=== PATIENT | female | born 1985 | race Caucasian/White ===

== ENCOUNTER 2017-09-26 02:05 | Outpatient (CLI) | payer MEDICAID | END 2017-09-26 02:06 | disposition critical access hospital (66) | LOC: EMS 02:05 | PROVIDERS: ATTEND Surgery | DX: R07.9 Chest pain, unspecified (principal) | CPT/HCPCS: A0425; A0429; A0999 ==

== ENCOUNTER 2017-09-26 02:24 | Emergency (ER) | payer MEDICAID ==
--- NOTE | 2017-09-26 03:54 | ED Physician Documentation ---
History of Present Illness - Stated complaint Stated Complaint: LEFT ARM TINGLING, ANXIETY - Chief complaint Chief Complaint: MHE - History obtained from History obtained from: Patient - History of Present Illness Timing: Enter time (01:00), Today Pain level max: 8 Pain level now: 0 Improved by: no ameliorating factors - Additonal information Additional information: much of history is from person accompanying patient (at bedside) who identifies herself as patients friend and neighbor; patient contributes minimally due to being sleepy and does not want to wake up for H+P (she verbalizes that she is tired and wants to sleep. Friend says this is not unusual for patient.) patient and friend were at a gathering [employer], had some alcoholic beverages and then went to patients apartment. at approximately 1 AM, patient told friend she was having chest pain, left arm numbness, and blurry vision left eye. on my HPI, patient denies having these symptoms at this time Review of Systems Unable to obtain: Uncooperative (limited (patient answers some questions with one or two word answers or shaking head, but mostly asks to be left alone so she can sleep)) Eyes: reports: Decreased vision Cardiac: reports: Chest pain / pressure Respiratory: denies: Dyspnea GI: denies: Abdominal Pain Neurologic: reports: Numbness (LUE). denies: Headache PD PAST MEDICAL HISTORY - Past Medical History Past Medical History: Yes Psych: Depression, Anxiety - Past Surgical History Past Surgical History: No - Present Medications Home Medications: Ambulatory Orders Medication Instructions Recorded Confirmed Vit W-Ca,Fe,FA(<1 mg) 09/16/14 09/16/14 [ Vitamins] Acetaminophen/Cod 300/30 [Tylenol 1 - 2 each PO Q6HR PRN #12 tablet 09/17/14 #3] - Allergies Allergies/Adverse Reactions: Allergies Allergy/AdvReac Type Severity Reaction Status Date / Time No Known Drug Allergies Allergy Verified 09/26/17 02:26 - Social History Does the pt smoke?: Yes Smoking Status: Current every day smoker Does the pt drink ETOH?: Yes Does the pt have substance abuse?: No - Immunizations Immunizations are current?: Yes - POLST Patient has POLST: No PD ED PE NORMAL - Vitals Vital signs reviewed: Yes - General General: No acute distress, Well developed/nourished, Other (asleep, awakens to tactile, sometimes needing repeated tactile (shaking of shoulder) to keep her awake. follows some commands) - HEENT HEENT: Atraumatic, PERRL, EOMI, Moist mucous membranes - Neck Neck: No bony TTP - Cardiac Cardiac: RRR, No murmur - Respiratory Respiratory: No respiratory distress, Clear bilaterally - Abdomen Abdomen: Normal bowel sounds, Soft, Non tender, Non distended - Neuro Eye Opening: To Voice Motor: Obeys Commands Verbal: Oriented GCS Score: 14 Results - Vitals Vitals: Vital Signs - 24 hr 09/26/17 09/26/17 04:21 06:15 Temperature 36.5 C Heart Rate 78 80 Respiratory 24 16 Rate Blood Pressure 93/55 L 110/78 O2 Saturation 96 98 Oxygen O2 Source Room air - Labs Labs: Laboratory Tests 09/26/17 09/26/17 09/26/17 04:30 04:30 04:30 WBC 8.5 RBC 4.35 Hgb 14.4 Hct 41.9 MCV 96.3 MCH 33.1 H MCHC 34.4 RDW 13.5 Plt Count 377 MPV 7.7 L Neut # (Auto) 4.3 Lymph # (Auto) 3.5 Kimble # (Auto) 0.3 Eos # (Auto) 0.4 Baso # (Auto) 0.1 Absolute Nucleated RBC 0.01 Nucleated RBC % 0.1 Sodium 144 Potassium 4.1 Chloride 109 Carbon Dioxide 24 Anion Gap 11.0 BUN 11 Creatinine 0.9 Estimated GFR (MDRD) 74 L Glucose 104 H Calcium 8.6 Troponin I < 0.04 Ethyl Alcohol 214.0 - Rads (name of study) CT head Radiology: Prelim report reviewed, See rad report chest xray Radiology: Prelim report reviewed, See rad report PD MEDICAL DECISION MAKING - ED course Complexity details: reviewed results, re-evaluated patient, considered differential, d/w patient - Sepsis Event Vital Signs: Vital Signs - 24 hr 09/26/17 09/26/17 04:21 06:15 Temperature 36.5 C Heart Rate 78 80 Respiratory 24 16 Rate Blood Pressure 93/55 L 110/78 O2 Saturation 96 98 Oxygen O2 Source Room air Departure - Departure Disposition: 01 Home, Self Care Clinical Impression: Chest pain Condition: Good Instructions: ED Chest Pain Atypical Unkn Cause Follow-Up: [facility] [Provider Group] [facility] [Provider Group] Comments: Contact your primary care provider's office this morning to arrange for next available appointment. Do not drive today, as your alcohol level is very high. Discharge Date/Time: 09/26/17 06:31
[2017-09-26 04:39] LABS: BASOPHILS # (AUTO) 0.1 10^3/uL (0.0-0.1); BASOPHILS % (AUTO) 0.7 %; EOSINOPHILS # (AUTO) 0.4 10^3/uL (0.0-0.7); EOSINOPHILS % (AUTO) 4.6 %; HGB - HEMOGLOBIN 14.4 g/dL (12.0-16.0); LYMPHOCYTES # (AUTO) 3.5 10^3/uL (1.5-3.5); LYMPHOCYTES % (AUTO) 40.9 %; MEAN CORPUSCULAR HEMOGLOBIN 33.1 pg (27.0-31.0); MEAN CORPUSCULAR HGB CONC 34.4 g/dL (32.0-36.0); MEAN CORPUSCULAR VOLUME 96.3 fL (81.0-99.0); MEAN PLATELET VOLUME 7.7 fL (7.9-10.8); MONOCYTES # (AUTO) 0.3 10^3/uL (0.0-1.0); MONOCYTES % (AUTO) 3.7 %; NEUTROPHILS # (AUTO) 4.3 10^3/uL (1.5-6.6); NEUTROPHILS % (AUTO) 50.1 %; PLT - PLATELET COUNT 377 10^3/uL (130-450); RED BLOOD COUNT 4.35 10^6/uL (4.20-5.40); RED CELL DISTRIBUTION WIDTH 13.5 % (12.0-15.0); WHITE BLOOD COUNT 8.5 x10^3/uL (4.8-10.8)
[2017-09-26 04:48] LABS: CALCIUM 8.6 mg/dL (8.5-10.3); CREATININE 0.9 mg/dL (0.4-1.0)
--- NOTE | 2017-09-26 04:54 | XRAY Report ---
Procedure Date: 09/26/2017 Accession Number: [id number] / [id number] Procedure: XR - Chest 2 View X-Ray CPT Code: 34064 FULL RESULT: EXAM: CHEST RADIOGRAPHY EXAM DATE: 09/26/2017 04:49 AM. CLINICAL HISTORY: Chest pain. COMPARISON: None. TECHNIQUE: 2 views. FINDINGS: Lungs/Pleura: No focal opacities evident. No pleural effusion. No pneumothorax. Normal volumes. Mediastinum: Heart and mediastinal contours are unremarkable. Other: None. IMPRESSION: Normal 2-view chest radiography. RAD[facility]
--- NOTE | 2017-09-26 05:11 | CT Report ---
Procedure Date: 09/26/2017 Accession Number: [id number] / [id number] Procedure: CT - Head W/O CPT Code: FULL RESULT: EXAM: CT HEAD EXAM DATE: 09/26/2017 04:50 AM. CLINICAL HISTORY: Left vision loss. COMPARISON: None. TECHNIQUE: Multiaxial CT images were obtained from the foramen magnum to the vertex. Reformats: Sagittal and coronal. IV contrast: None. In accordance with CT protocol optimization, one or more of the following dose reduction techniques were utilized for this exam: automated exposure control, adjustment of mA and/or KV based on patient size, or use of iterative reconstructive technique. FINDINGS: Parenchyma: No intraparenchymal hemorrhage. No evidence of mass, midline shift, or CT findings of infarction. Muñoz-white differentiation is distinct. Extraaxial Spaces: Normal for age. No subdural or epidural collections identified. Ventricles: Normal in size and position. Cavum septum pellucid on incidentally noted. Sinuses and Orbits: Imaged paranasal sinuses, orbits, and mastoids show no significant abnormality. Bones: No evidence of fracture or calvarial defect. Other: None. IMPRESSION: No acute or focal intracranial abnormality. RADIA
[2017-09-26 06:30] VITALS: BP 110/78
== END 2017-09-26 06:31 | disposition home or self-care (01) ==
LOC: EDUNIT# → ED 02:24
DX: R07.9 Chest pain, unspecified (principal); F17.200 Nicotine dependence, unspecified, uncomplicated
CPT/HCPCS: 36415; 70450; 71046; 80048; 80320; 84484; 85025; 99283

== ENCOUNTER 2019-01-09 08:59 | Emergency (ER) | payer MEDICAID ==
--- NOTE | 2019-01-09 09:04 | ED Physician Documentation ---
PD HPI FEMALE - Stated complaint Stated Complaint: FEMALE - History obtained from History obtained from: Patient - History of Present Illness Timing - onset: How many days ago (3) Timing - duration: Days (3) Timing - details: Gradual onset, Still present Associated symptoms: Dysuria, Urinary frequency. No: Fever, Back pain, Genital sore/lesion Contributing factors: No: Exposed to STD Similar symptoms before: Diagnosis (UTIs remotely, not recent.) Review of Systems Constitutional: denies: Fever, Chills, Myalgias GI: denies: Abdominal Pain, Nausea, Vomiting, Diarrhea : reports: Dysuria, Frequency. denies: Discharge Skin: denies: Rash PD PAST MEDICAL HISTORY - Past Medical History Past Medical History: No - Past Surgical History Past Surgical History: No - Present Medications Home Medications: Ambulatory Orders Medication Instructions Recorded Confirmed Phenazopyridine HCl [Pyridium] 100 mg PO TID PRN #15 tablet 01/09/19 Sulfamethox/Trimeth 800/160 1 each PO BID #14 tablet 01/09/19 [Bactrim Ds 800/160] - Allergies Allergies/Adverse Reactions: Allergies Allergy/AdvReac Type Severity Reaction Status Date / Time No Known Drug Allergies Allergy Verified 01/09/19 09:08 - Social History Does the pt smoke?: Yes Smoking Status: Current every day smoker Does the pt drink ETOH?: Yes Does the pt have substance abuse?: No - Immunizations Immunizations are current?: Yes - POLST Patient has POLST: No PD ED PE NORMAL - Vitals Vital signs reviewed: Yes - General General: Alert and oriented X 3, No acute distress, Well developed/nourished - Female Female : Deferred - Back Back: No CVA TTP - Derm Derm: Normal color, Warm and dry Results - Vitals Vitals: Vital Signs - 24 hr 01/09/19 09:05 Temperature 37.1 C Heart Rate 78 Respiratory 18 Rate Blood Pressure 150/78 H O2 Saturation 99 Oxygen O2 Source Room air Departure - Departure Disposition: 01 Home, Self Care Clinical Impression: Cystitis Condition: Stable Record reviewed to determine appropriate education?: Yes Instructions: ED UTI Cystitis Female Prescriptions: Phenazopyridine HCl [Pyridium] 100 mg PO TID PRN #15 tablet PRN Reason: Abdominal Pain Sulfamethox/Trimeth 800/160 [Bactrim Ds 800/160] 1 each PO BID #14 tablet Comments: Stay well-hydrated. Cranberry juice is great. Some anti-inflammatories such as ibuprofen or naproxen can help. Tylenol 2 if needed. Phenazopyridine can help with the urinary discomfort and will turn the urine will orange-colored so not to worry. This is to reduce symptoms while waiting for the infection to clear with the antibiotics. Bactrim antibiotic twice daily for 5 to 7 days for this to fully clear. Recheck if not improving over the next few days.
[2019-01-09 09:07] VITALS: BP 150/78
[2019-01-09] MEDS ORDERED: PHENAZOPYRIDINE 100 MG TABLET PO STA (09:21)
[2019-01-09] MEDS ORDERED: SULFAMETH/TRIMETH DS 800/160 MG TABLET PO STA (09:21)
[2019-01-09] MEDS ORDERED: NAPROXEN 250 MG TABLET PO STA (09:21)
[2019-01-09 09:23] LABS: BILIRUBIN,URINE NEGATIVE (NEGATIVE); GLUCOSE, URINE (UA) NEGATIVE (NEGATIVE); KETONES,URINE (UA) NEGATIVE (NEGATIVE); LEUKOCYTE ESTERASE, URINE SMALL (NEGATIVE); NITRITE,URINE NEGATIVE (NEGATIVE); OCCULT BLOOD,URINE MODERATE (NEGATIVE); PROTEIN,URINE 100 mg/dL (NEGATIVE); UROBILINOGEN,URINE 0.2 (NORMAL) E.U./dL (NORMAL)
[2019-01-09 09:26] LABS: CLARITY,URINE CLOUDY (CLEAR); HCG UR QUAL NEGATIVE
[2019-01-09 09:43] LABS: AMORPHOUS SEDIMENT,UR Rare /LPF; BACTERIA,URINE Few /HPF (None Seen); SQUAMOUS EPITHELIAL CELL,UR FEW Squamous (<= Few)
== END 2019-01-09 09:36 | disposition home or self-care (01) ==
LOC: ED 08:59
DX: N30.90 Cystitis, unspecified without hematuria (principal); F17.200 Nicotine dependence, unspecified, uncomplicated
CPT/HCPCS: 81001; 81025; 87077; 87086; 99283; A9270; 81003

== ENCOUNTER 2021-05-07 16:43 | Emergency (ER) | payer MEDICAID ==
[2021-05-07 16:57] VITALS: BP 132/89
--- NOTE | 2021-05-07 17:00 | ED Physician Documentation ---
PD HPI NECK PAIN - Stated complaint Stated Complaint: right shoulder & neck px - Chief complaint Chief Complaint: Ext Problem - History obtained from History obtained from: Patient - History of Present Illness Timing - onset: How many days ago (5) Timing - duration: Days (5) Timing - details: Abrupt onset (She states a pressure and twisting type injury of her neck under low velocity. She has had pain in the area particularly during work time but also difficulty sleeping. Ibuprofen helps some but overall not improved.), Still present, Waxing and waning Quality: Pain, Spasm, Other (pain to right suprascapular area and posterior shoulder. No numbness/weakness in arm.) Associated symptoms: No: Fever, Weakness, Numbness Worsened by: Movement, Palpation Contributing factors: Lifting, Twisting Similar symptoms before: Has not had sx before Recently seen: Not recently seen Review of Systems Constitutional: denies: Fever, Chills Nose: denies: Rhinorrhea / runny nose, Congestion Throat: denies: Sore throat Respiratory: denies: Cough Skin: denies: Rash, Lesions Musculoskeletal: reports: Neck pain, Back pain (right scapular area) Neurologic: denies: Focal weakness, Numbness PD PAST MEDICAL HISTORY - Past Medical History Cardiovascular: None Respiratory: None Psych: Depression, Anxiety - Past Surgical History Past Surgical History: No - Present Medications Home Medications: Ambulatory Orders Medication Instructions Recorded Confirmed Phenazopyridine HCl [Pyridium] 100 mg PO TID PRN #15 tablet 01/09/19 Sulfamethox/Trimeth 800/160 1 each PO BID #14 tablet 01/09/19 [Bactrim Ds 800/160] Albuterol Sulfate [Proair Hfa 1 - 2 puffs INH Q4H PRN #1 inhaler 09/16/19 Inhaler] HYDROcod/ACETAM 5/325 [[place] 5/325] 1 ea PO Q6H PRN #15 tablet 05/07/21 tiZANidine [Zanaflex] 4 mg PO Q8H PRN #20 tablet 05/07/21 - Allergies Allergies/Adverse Reactions: Allergies Allergy/AdvReac Type Severity Reaction Status Date / Time No Known Drug Allergies Allergy Verified 05/07/21 16:57 - Social History Does the pt smoke?: Yes Smoking Status: Current every day smoker Does the pt drink ETOH?: Yes Does the pt have substance abuse?: No - Immunizations Immunizations are current?: Yes - POLST Patient has POLST: No PD ED PE NORMAL - Vitals Vital signs reviewed: Yes - General General: Alert and oriented X 3, No acute distress, Well developed/nourished - HEENT HEENT: Ears normal, Moist mucous membranes, Pharynx benign - Neck Neck: Supple, no meningeal sign, No bony TTP, Other (No tenderness midline per se. She is tender in the right occipital ridge on downward to the right lateral neck and suprascapular area consistent with trapezius muscle distribution.) - Derm Derm: Normal color, Warm and dry, No rash - Neuro Neuro: Alert and oriented X 3, No motor deficit, No sensory deficit, Normal speech Results - Vitals Vitals: Vital Signs - 24 hr 05/07/21 16:53 Heart Rate 81 Respiratory 16 Rate Blood Pressure 132/89 H O2 Saturation 98 Oxygen O2 Source Room air PD MEDICAL DECISION MAKING - ED course Complexity details: considered differential (She had a muscle strain with a twisting and pressure of the neck. It has been hurting since. Low velocity injury without any neuro deficit, Suggesting no need for image.), d/w patient ED course: I am prescribing a short course of short acting opioid pain medicine for this patient. I reviewed the patient's STRADDLE BUG and no concerning findings were noted. I have discussed that the opioids are for short-term therapy only, and will not be refilled from the ED. Departure - Departure Disposition: 01 Home, Self Care Clinical Impression: Trapezius muscle strain Qualifiers: Encounter type: initial encounter Laterality: right Qualified Code(s): S46.811A - Strain of other muscles, fascia and tendons at shoulder and upper arm level, right arm, initial encounter Condition: Stable Record reviewed to determine appropriate education?: Yes Instructions: ED Sprain Strain Neck Prescriptions: HYDROcod/ACETAM 5/325 [[place] 5/325] 1 ea PO Q6H PRN #15 tablet PRN Reason: Pain tiZANidine [Zanaflex] 4 mg PO Q8H PRN #20 tablet PRN Reason: Spasms Comments: Your area of pain is consistent with a trapezius muscle strain and spasms. I would continue with some ibuprofen 400 to 600 mg 3 times a day. Heat and gentle stretching for the muscle area. Physical treatments such as massage is also good. To this add Tylenol every 4-6 hours if needed or hydrocodone if needed for worse pain. You could also try muscle relaxant for the spasms component. I would anticipate improvement over the next several days and resolved by 5 to 7 days. Again gentle range of motion heat and stretching are good. I transmitted your prescriptions to [facility] in [place]. My narcotic instructions I am prescribing a short course of narcotic pain medication for you. These are potentially dangerous and addictive medications that should be used carefully. These medications may constipate you. Take an iolw-cvx-[id number] stool softener such as docusate twice daily with plenty of water while taking these medications. If you go 24 hours without a bowel movement, take soyn-aqj-pijhgnz MiraLAX, per package instructions. Do not drink or drive while taking these medications. If you received narcotic or sedating medications while in the emergency department do not drive for 24 hours. Store this medication in a safe, secure place and out of reach of children. It is a violation of federal law to give or sell this medication to another person or to use in a manner other than prescribed. The ED will not refill narcotic prescriptions, including prescriptions lost or stolen. You can dispose of unwanted medications at the [facility]'s office or at several pharmacies such as [facility].
[2021-05-07] MEDS ORDERED: ACETAMINOPHEN 325 MG TABLET PO STA (17:13)
[2021-05-07] MEDS ORDERED: IBUPROFEN 600 MG TABLET PO STA (17:13)
== END 2021-05-07 18:30 | disposition home or self-care (01) ==
LOC: ED 16:43
DX: S46.812A Strain of other muscles, fascia and tendons at shoulder and upper arm level, left arm, initial encounter (principal); X58.XXXA Exposure to other specified factors, initial encounter; F17.200 Nicotine dependence, unspecified, uncomplicated
CPT/HCPCS: 99282; A9270

== ENCOUNTER 2021-08-04 21:27 | Emergency (ER) | payer MEDICAID ==
[2021-08-04 22:10] VITALS: BP 140/79
--- NOTE | 2021-08-04 23:06 | ED Physician Documentation ---
PD HPI HEENT - Stated complaint Stated Complaint: TONGUE SWOLLEN,PAIN - Chief complaint Chief Complaint: Heent - History obtained from History obtained from: Patient - History of Present Illness Timing - onset: Enter time (17:30), Today Timing - details: Gradual onset Pain level now: 6 Location: Throat Improves: Nothing Worsens: Swalllowing Associated symptoms: No: Fever Similar symptoms before: Has not had sx before - Additional information Additional information: since approximately 5:30 PM today, patient has had sore, "itchy" throat, sensation of tongue swelling, odynophagia, and hoarse voice. Denies fever. Review of Systems Constitutional: denies: Fever, Chills, Sweats Throat: reports: Sore throat Respiratory: denies: Cough : denies: Now EGA PD PAST MEDICAL HISTORY - Past Medical History Cardiovascular: None Respiratory: None Psych: Depression, Anxiety - Past Surgical History Past Surgical History: No - Present Medications Home Medications: Ambulatory Orders Medication Instructions Recorded Confirmed Phenazopyridine HCl [Pyridium] 100 mg PO TID PRN #15 tablet 01/09/19 Sulfamethox/Trimeth 800/160 1 each PO BID #14 tablet 01/09/19 [Bactrim Ds 800/160] Albuterol Sulfate [Proair Hfa 1 - 2 puffs INH Q4H PRN #1 inhaler 09/16/19 Inhaler] HYDROcod/ACETAM 5/325 [[place] 5/325] 1 ea PO Q6H PRN #15 tablet 05/07/21 tiZANidine [Zanaflex] 4 mg PO Q8H PRN #20 tablet 05/07/21 Amoxicillin 500 mg PO BID #19 cap 08/05/21 - Allergies Allergies/Adverse Reactions: Allergies Allergy/AdvReac Type Severity Reaction Status Date / Time No Known Drug Allergies Allergy Verified 08/04/21 21:42 - Social History Does the pt smoke?: Yes Smoking Status: Current every day smoker Does the pt drink ETOH?: Yes Does the pt have substance abuse?: No - Immunizations Immunizations are current?: Yes - POLST Patient has POLST: No PD ED PE NORMAL - Vitals Vital signs reviewed: Yes - General General: Alert and oriented X 3, No acute distress, Well developed/nourished - HEENT HEENT: Moist mucous membranes PD ED PE EXPANDED - HEENT HEENT: Pharyngeal erythema (mild posterior o/p erythema with mild swelling (R>L)). No: Tonsillar exudate Results - Vitals Vitals: Oxygen O2 Source Room air - Labs Labs: Laboratory Tests 08/04/21 23:14 Group A Strep Rapid POSITIVE H PD MEDICAL DECISION MAKING - ED course Complexity details: reviewed results, re-evaluated patient, considered differential, d/w patient ED course: given 10mg PO decadron for throat pain and swelling sensation of throat and t ongue. She is positive for strep on the rapid strep swab and is given amoxicillin and rx electronically submitted to her pharmacy of choice. Departure - Departure Disposition: 01 Home, Self Care Clinical Impression: Strep throat Condition: Good Instructions: ED Strep Pharyngitis Conf Prescriptions: Amoxicillin 500 mg PO BID #19 cap Comments: You have strep throat. An antibiotic (amoxicillin) was given in the emergency department and a prescription was electronically submitted to [facility] in [place] Discharge Date/Time: 08/05/21 00:45
[2021-08-04] MEDS ORDERED: CHERRY SYRUP 10 ML UDC PO ONE (23:16)
[2021-08-04] MEDS ORDERED: DEXAMETHASONE 10 MG/ML VIAL PO STA (23:16)
[2021-08-04 23:42] LABS: RAPID STREP SCREEN POSITIVE (Negative)
[2021-08-05] MEDS ORDERED: AMOXICILLIN 250 MG CAPSULE PO STA (00:25)
== END 2021-08-05 00:45 | disposition home or self-care (01) ==
LOC: ED 21:27
DX: J02.0 Streptococcal pharyngitis (principal); F17.200 Nicotine dependence, unspecified, uncomplicated
CPT/HCPCS: 87430; 99282; 99283; A9270